=== PATIENT | female | born 2000 | race African-American/Black ===

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

== ENCOUNTER 2019-06-28 14:28 | Emergency (ER) | payer OTHER ==
[2019-06-28 14:53] VITALS: BP 120/61; PULSE 73; TEMP 98.7; BMI 24.9
[2019-06-28 15:11] LABS: HCG,QUALITATIVE URINE Negative
[2019-06-28 15:29] LABS: EOS % 0.8 % (0-4.5); MCH 31.4 pg (25.7-33.7); MEAN PLT VOLUME 8.3 fl (7.5-11.1)
[2019-06-28 15:31] LABS: BASO % 0.5 % (0-2.0); HEMATOCRIT 38.1 % (32.4-45.2); HEMOGLOBIN 12.7 GM/dl (10.7-15.3); MCHC 33.3 g/dl (32.0-36.0); MEAN CELL VOLUME 94.2 fl (80-96); MONO % 5.2 % (3.8-10.2); NEUT % 63.5 % (42.8-82.8); PLATELET COUNT 295 K/MM3 (134-434); RBC 4.04 M/mm3 (3.60-5.2); RDW 11.7 % (11.6-15.6); WHITE BLOOD COUNT 6.5 K/mm3 (4.0-10.8)
[2019-06-28 15:33] LABS: ALBUMIN 3.8 g/dl (3.4-5.0); BILIRUBIN,TOTAL 0.3 mg/dl (0.2-1); CALCIUM 9.4 mg/dl (8.5-10); CREATININE 0.7 mg/dl (0.55-1.3); POTASSIUM 3.9 mmol/L (3.5-5.1); TOT PROT 7.2 g/dl (6.4-8.2)
[2019-06-28] MEDS ORDERED: ACETAMINOPHEN 1000 MG/100 ML VIAL (NON FORMULARY) IVPB ONE (16:00)
[2019-06-28] MEDS ORDERED: ACETAMINOPHEN INJECTION 100 ML IVPB ONE (16:01)
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
== END 2019-06-28 17:53 | disposition home or self-care (01) ==
LOC: FER 14:28
PROC: 3E033NZ Introduction of Analgesics, Hypnotics, Sedatives into Peripheral Vein, Percutaneous Approach (ICD-10-PCS; principal; 2019-06-28)
DX: A08.4 Viral intestinal infection, unspecified (principal); B97.89 Other viral agents as the cause of diseases classified elsewhere; Z91.018 Allergy to other foods
CPT/HCPCS: 36415; 76830-TC; 80053; 81003; 84703; 85025; 99284-25; J0131

== ENCOUNTER 2020-04-25 15:25 | Emergency (ER) | payer OTHER ==
[2020-04-25] MEDS ORDERED: ALBUTEROL SO4 2.5/IPRATROPIUM 0.5 INH SOL 3 ML VIAL.NEB. NEB ONE ×2 (15:32→15:33)
[2020-04-25 15:59] VITALS: BP 106/54; PULSE 97; TEMP 99; BMI 21.6
[2020-04-25] MEDS ORDERED: predniSONE 20 MG TABLET (UD) PO ONE (16:19)
[2020-04-25] MEDS ORDERED: predniSONE 20 MG TABLET (UD) ONE (16:27)
== END 2020-04-25 16:55 | disposition home or self-care (01) ==
LOC: FER 15:25
PROC: 3E0F7GC Introduction of Other Therapeutic Substance into Respiratory Tract, Via Natural or Artificial Opening (ICD-10-PCS; principal; 2020-04-25)
DX: U07.1 COVID-19 (principal); J45.21 Mild intermittent asthma with (acute) exacerbation
CPT/HCPCS: 99283-25; C9803; U0003

== ENCOUNTER 2020-06-17 16:21 | Emergency (ER) | payer OTHER ==
[2020-06-17] MEDS ORDERED: ACETAMINOPHEN 325 MG TABLET (FP) PO ONE (16:29)
[2020-06-17] MEDS ORDERED: ACETAMINOPHEN 325 MG TABLET (FP) ONE (16:33)
[2020-06-17 16:39] VITALS: BP 111/74; PULSE 83; TEMP 99.4; BMI 18.8
== END 2020-06-17 16:46 | disposition home or self-care (01) ==
LOC: FER 16:21
DX: R51.9 Headache, unspecified (principal); S06.0X0A Concussion without loss of consciousness, initial encounter
CPT/HCPCS: 99284-25

== ENCOUNTER 2021-01-06 19:08 | Emergency (ER) | payer OTHER ==
[2021-01-06 19:15] VITALS: BMI 21.6
[2021-01-06] MEDS ORDERED: DOXYCYCLINE HYCLATE 100 MG CAPSULE PO ONE ×2 (20:43→20:48)
[2021-01-06] MEDS ORDERED: cefTRIAXone SODIUM 1 GM VIAL ONE (20:48)
[2021-01-06 21:13] LABS: EPI CELLS 20 /uL (0-25.1); HYALINE CASTS 2 /uL (0-3.1); URINE APPEARANCE CLEAR; URINE BACTERIA 105 /uL (0-1359); URINE BILIRUBIN NEGATIVE (NEGATIVE); URINE COLOR YELLOW; URINE GLUCOSE (UA) NEGATIVE (NEGATIVE); URINE KETONE NEGATIVE (NEGATIVE); URINE LEUK ESTERASE 1+ (NEGATIVE); URINE NITRITE NEGATIVE (NEGATIVE); URINE PROTEIN NEGATIVE (NEGATIVE); URINE RBC 5 /uL (0-23.9); URINE WBC 59 /uL (0-25.8)
[2021-01-06] MEDS ORDERED: ONDANSETRON *ODT* 4 MG TABLET SL ONE (21:23)
[2021-01-06] MEDS ORDERED: ONDANSETRON *ODT* 4 MG TABLET ONE (21:27)
[2021-01-06 21:59] VITALS: BP 110/65; PULSE 88; TEMP 98.5
== END 2021-01-06 21:59 | disposition home or self-care (01) ==
LOC: JER 19:08
DX: Z20.2 Contact with and (suspected) exposure to infections with a predominantly sexual mode of transmission (principal)
CPT/HCPCS: 36415; 81003; 84703; 87086; 87491; 87591; 99284-25; Q0162